=== PATIENT | female | born 1965 | race Caucasian/White ===

== ENCOUNTER 2021-07-21 13:45 | Observation (INO) ==
[2021-07-21] MEDS ORDERED: cefOXitin 2,000 MG in 0.9 % Sodium Chloride 20 ML IVP ONE (14:53)
[2021-07-21] MEDS ORDERED: Ringers Solution, Lactated 1,000 ML IVC SCH (15:00)
[2021-07-21] MEDS ORDERED: Acetaminophen IV 1,000 MG/100 ML BAG IVPB ONE (15:06)
[2021-07-21] MEDS ORDERED: *HR* HYDROmorphone PF 0.5 MG/0.5 ML SYRINGE IVP PRN (15:12)
[2021-07-21] MEDS ORDERED: Ondansetron 4 MG/2 ML VIAL IVP PRN ×2 (15:12→20:01)
[2021-07-21] MEDS ORDERED: *HR* FentaNYL (PF) 100 MCG/2 ML VIAL ONE (15:45)
[2021-07-21] MEDS ORDERED: *HR* Propofol 200 MG/20 ML VIAL IVP ONE (15:45)
[2021-07-21] MEDS ORDERED: *HR* Midazolam HCl 2 MG/2 ML VIAL ONE ×2 (15:45→17:57)
[2021-07-21] MEDS ORDERED: *HR* Rocuronium Bromide 50 MG/5 ML VIAL ONE ×3 (15:46→17:40)
[2021-07-21] MEDS ORDERED: Lidocaine -MPF 2% 2 ML VIAL ONE (15:46)
[2021-07-21] MEDS ORDERED: Ondansetron 4 MG/2 ML VIAL ONE ×2 (15:46→16:46)
[2021-07-21] MEDS ORDERED: *HR* Succinylcholine 200 MG/10 ML VIAL IVP ONE (16:45)
[2021-07-21] MEDS ORDERED: Ketorolac 30 MG/ML VIAL ONE (17:46)
[2021-07-21] MEDS ORDERED: Sugammadex Sodium 200 MG/2 ML VIAL IV ONE (17:47)
[2021-07-21] MEDS ORDERED: *HR* HYDROMORPHONE 2 MG/ML VIAL ONE (18:46)
[2021-07-21] MEDS ORDERED: Naloxone 0.4 MG/ML INJ IVP PRN (20:01)
[2021-07-21] MEDS ORDERED: *HR* LORazepam 0.5 MG TABLET PO PRN (20:01)
[2021-07-21] MEDS: 0.9 % Sodium Chloride 1,000 ML IVC SCH (20:13)
[2021-07-21] MEDS: *HR* OxyCODONE Immed Rel 5 MG TABLET PO PRN (20:13)
[2021-07-21] MEDS: Morphine Sulfate Oral CONC 10 MG/0.5 ML ORAL.SYG SL PRN (21:33)
[2021-07-21] MEDS: Ketorolac 30 MG/ML VIAL IVP SCH (23:33)
[2021-07-21] MEDS: cefOXitin 1,000 MG in 0.9 % Sodium Chloride 10 ML IVP SCH (23:33)
[2021-07-21] MEDS: Acetaminophen 325 MG TABLET PO SCH (23:34)
[2021-07-22] MEDS: Ketorolac 30 MG/ML VIAL IVP SCH ×3 (05:10→18:00)
[2021-07-22] MEDS: Acetaminophen 325 MG TABLET PO SCH ×3 (05:11→18:01)
[2021-07-22 06:28] LABS: Basophils % 0.1 %; Hematocrit 34.6 % (35.3-44.9); Hemoglobin 11.5 g/dL (11.5-15.4); Immature Granulocytes % 0.7 % (0-4); Lymphocytes # 0.9 K/mcL (0.6-4.6); Lymphocytes % 10.2 %; Mean Corpuscular HGB Conc 33.2 g/dL (31.6-35.5); Mean Corpuscular Hemoglobin 28.8 pg (28.0-33.3); Mean Corpuscular Volume 86.7 fL (83.0-100.0); Mean Platelet Volume 9.3 fL (9.4-12.4); Monocytes # 0.1 K/mcL (0.0-1.3); Monocytes % 1.1 %; Neutrophils # 7.7 K/mcL (1.6-8.9); Platelet Count 221 K/mcL (140-400); Red Blood Count 3.99 M/mcL (3.82-4.97); Red Cell Distribution Width 12.5 % (11.5-14.5); Segmented Neutrophils % 87.9 %; White Blood Count 8.7 K/mcL (4.3-11.1)
[2021-07-22 06:45] LABS: BUN/Creatinine Ratio 16 (6-26); Blood Urea Nitrogen 16 mg/dL (6-20); Calcium 8.7 mg/dL (8.6-10.3); Carbon Dioxide 24 mEq/L (23-29); Chloride 106 mEq/L (98-107); Glucose 161 mg/dL (70-105); Osmolality,Calculated 291 (280-300); Potassium 4.4 mEq/L (3.5-5.1); Sodium 138 mEq/L (136-145); eGFR For African Americans > 60 (> 60); eGFR For Non-African Americans 59 (> 60)
[2021-07-22] MEDS: lisinopriL 10 MG TABLET PO SCH (09:49)
[2021-07-22] MEDS: 0.9 % Sodium Chloride 1,000 ML IVC SCH (09:50)
[2021-07-22] MEDS: cefOXitin 1,000 MG in 0.9 % Sodium Chloride 10 ML IVP SCH ×2 (09:51→18:44)
[2021-07-22] MEDS: Morphine Sulfate Oral CONC 10 MG/0.5 ML ORAL.SYG SL PRN (09:58)
[2021-07-22] MEDS: *HR* Heparin 5,000 UNIT/ML VIAL SQ SCH (18:01)
[2021-07-23] MEDS: 0.9 % Sodium Chloride 1,000 ML IVC SCH ×2 (00:19→13:48)
[2021-07-23] MEDS: Acetaminophen 325 MG TABLET PO SCH ×5 (00:20→23:09)
[2021-07-23] MEDS: Ketorolac 30 MG/ML VIAL IVP SCH ×5 (00:26→23:09)
[2021-07-23] MEDS: *HR* OxyCODONE Immed Rel 5 MG TABLET PO PRN (03:12)
[2021-07-23] MEDS: *HR* Heparin 5,000 UNIT/ML VIAL SQ SCH ×2 (05:24→18:24)
[2021-07-23] MEDS: lisinopriL 10 MG TABLET PO SCH (09:10)
[2021-07-24] MEDS: 0.9 % Sodium Chloride 1,000 ML IVC SCH (02:40)
[2021-07-24] MEDS: *HR* Heparin 5,000 UNIT/ML VIAL SQ SCH (05:18)
[2021-07-24] MEDS: Acetaminophen 325 MG TABLET PO SCH (05:18)
[2021-07-24] MEDS: Ketorolac 30 MG/ML VIAL IVP SCH (05:19)
[2021-07-24] MEDS ORDERED: Ibuprofen 800 MG TABLET PO ONE (08:01)
[2021-07-24 08:11] VITALS: BP 122/65; PULSE 66; TEMP 97.5; O2SAT 97
[2021-07-24] MEDS ORDERED: Aspirin Enteric Coated 81 MG Tablet PO SCH (09:00)
[2021-07-24] MEDS ORDERED: Cholecalciferol (D-3) 1,000 UNIT (25MCG) TABLET PO SCH (09:00)
[2021-07-24] MEDS: lisinopriL 10 MG TABLET PO SCH (09:11)
== END 2021-07-24 11:21 | disposition home or self-care (01) ==
LOC: SAMDAY 13:45 → 3ANU 13:45
PROVIDERS: ADMIT Surgery; ATTEND Surgery